=== PATIENT | female | born 1940 | race Caucasian/White ===

== ENCOUNTER 2021-05-06 02:45 | Day surgery (SDC) | payer MEDICARE, SELFPAY ==
[2021-04-24 15:08] VITALS: BMI 28.3
--- NOTE | 2021-05-06 09:43 | WPDANESEPPF ---
Anes - Initial Pre Proc Eval Procedure: Operation Date: 05/06/21 12:00 Proposed Procedures p Colonoscopy - Shin Felix MD Date/Time: 05/06/21 09:43 Surgeon: Shin Felix MD Pre Op Diagnosis: occult GI bleed, positive stool Patient Data Age: 81 Gender: F Height: 1.68 m Weight: 79.5 kg Allergies Allergy/AdvReac Type Severity Reaction Status Date / Time No Known Allergies Allergy Verified 05/06/21 10:47 Home Medications Medication Instructions Recorded Confirmed Type atorvastatin 40 mg tablet 40 mg PO DAILY #90 tablet 03/14/21 04/24/21 Rx hydrochlorothiazide 25 mg tablet 25 mg PO DAILY #90 tablet 03/14/21 04/24/21 Rx Patient hx anesthesia problems: none Family hx anesthesia problems: none PMFSH Past Medical History Medical History (Updated 05/06/21 @ 09:44 by Sukumar Blunt MD) Essential (primary) hypertension Hypothyroidism, unspecified Mixed hyperlipidemia Polyarticular arthritis Family History Family History Mother Family history of osteoporosis, Onset Age: 80 Patient's mother is , Onset Age: 80 Father Family history of malignant neoplasm, Onset Age: 80 Patient's father is , Onset Age: 80 Other Carcinoma of colon Family history of malignant neoplasm of breast Social History Social History Smoking status: Never smoker Second hand tobacco smoke exposure: No Alcohol intake: current Drinks per week: 1 Substance use: never Living arrangements: with family Gender identity (if verbalized by the patient): Female Spiritual care concerns: No Anes - Eval Final PreProcedure Day of Procedure 05/06/21 09:43 Patient weight: overweight Heart: regular rate and rhythm Lungs: clear to auscultation and normal air movement Airway: Mallampati scale class II Neurological: alert and oriented Last oral intake: >/= 8 hours ASA classification: II Emergent: no Anesthetic plan: proceed Anesthesia type and monitoring: general GIVS Informed Consent: The patient's anesthetic plan and its attendant risks and benefits were discussed with the patient/family/POA. Questions were solicited and answers provided to the satisfaction of the patient/family/POA.
[2021-05-06 10:48] VITALS: BP 136/89; PULSE 125; RESP 18; TEMP 36.1; O2SAT 96
[2021-05-06] MEDS: LACTATED RINGERS 1,000 ML 150 ML IV CONT (11:01)
--- NOTE | 2021-05-06 11:26 | PM.HPGS ---
History of Present Illness History of Present Illness Consent: Risks, benefits, and alternatives have been discussed and questions answered. Patient agrees to proceed with procedure. Chief complaint: occult GI bleed, positive stool Narrative: Brigid Zhang is a 81 year old female With occult blood in her stools Review of Systems Review of Systems: All systems reviewed & are unremarkable except as noted in HPI and below PMFSH Past Medical History Medical History Essential (primary) hypertension Hypothyroidism, unspecified Mixed hyperlipidemia Polyarticular arthritis Family History Family History Mother Family history of osteoporosis, Onset Age: 80 Patient's mother is , Onset Age: 80 Father Family history of malignant neoplasm, Onset Age: 80 Patient's father is , Onset Age: 80 Other Carcinoma of colon Family history of malignant neoplasm of breast Social History Social History Smoking status: Never smoker Second hand tobacco smoke exposure: No Alcohol intake: current Drinks per week: 1 Substance use: never Living arrangements: with family Gender identity (if verbalized by the patient): Female Spiritual care concerns: No Meds Home Medications and Allergies Home Medications Medication Instructions Recorded Confirmed Type atorvastatin 40 mg tablet 40 mg PO DAILY #90 tablet 03/14/21 04/24/21 Rx hydrochlorothiazide 25 mg tablet 25 mg PO DAILY #90 tablet 03/14/21 04/24/21 Rx Allergies Allergy/AdvReac Type Severity Reaction Status Date / Time No Known Allergies Allergy Verified 05/06/21 10:47 Vital Signs Vital Signs - 24 hr 05/06/21 10:48 Temperature 36.1 C L Pulse Rate 125 H Respiratory Rate 18 Blood Pressure 136/89 Pulse Oximetry 96 Exam Resp: Auscultation: clear to auscultation bilaterally Cardio: Rate: regular rate Rhythm: regular rhythm GI: GI Palp: Yes Soft to palpation and No Tenderness to palpation present (GI) Assessment and Plan Assessment and plan (1) Blood in stool: Code(s): K92.1 - Melena Status: Acute Assessment and Plan: Colonoscopy with possible biopsy or polypectomy or cautery or injection of substances.
[2021-05-06 12:09] VITALS: BP 144/72; PULSE 97; RESP 24; O2SAT 97
[2021-05-06 12:19] VITALS: BP 135/72; PULSE 93; RESP 21; O2SAT 98
[2021-05-06 12:29] VITALS: BP 154/78; PULSE 94; RESP 24; O2SAT 98
== END 2021-05-06 12:43 | disposition home or self-care (01) ==
PROVIDERS: PCP Internal Medicine; Visit Provider Internal Medicine Gastroenterology
PROC: 0DJD8ZZ Inspection of Lower Intestinal Tract, Via Natural or Artificial Opening Endoscopic (ICD-10-PCS; CPT 45378; principal; 2021-05-06 12:00)
DX: K92.1 Melena (principal); K57.30 Diverticulosis of large intestine without perforation or abscess without bleeding; K62.1 Rectal polyp; I10 Essential (primary) hypertension; E03.9 Hypothyroidism, unspecified; E78.2 Mixed hyperlipidemia; M19.90 Unspecified osteoarthritis, unspecified site
CPT/HCPCS: 45380; 88305; J2405; J2704; J7120

== ENCOUNTER 2022-05-01 10:40 | Outpatient (CLI) | payer MEDICARE, SELFPAY ==
[2022-05-01 20:59] LABS: Alanine Aminotransferase 25 U/L (6-35); Albumin Level 4.4 g/dL (3.5-5.1); Alkaline Phosphatase 99 U/L (38-126); Anion Gap 9 mmol/L (8-16); Aspartate Amino Transferase 38 U/L (14-36); Bilirubin,Total 0.6 mg/dL (0.2-1.3); Blood Urea Nitrogen 18 mg/dL (7-17); Calcium 9.4 mg/dL (8.4-10.2); Carbon Dioxide 30 mmol/L (22-30); Chloride 99 mmol/L (98-107); Cholesterol 141 mg/dL (0-200); Estimated Glomerular Filt Rate > 60; Glucose 110 mg/dL (65-110); HDL Direct 39 mg/dL; Potassium 3.6 mmol/L (3.4-5.0); Sodium 138 mmol/L (137-145); Triglycerides 148 mg/dL (<150)
[2022-05-01 21:16] LABS: LDL Cholesterol Direct 54 mg/dL
== END 2022-05-01 10:41 | disposition home or self-care (01) ==
LOC: ANHGOSHLAB 10:42
PROVIDERS: PCP Family Medicine; Visit Provider Family Medicine
DX: E78.2 Mixed hyperlipidemia (principal); I10 Essential (primary) hypertension
CPT/HCPCS: 36415; 80053; 80061

== ENCOUNTER 2023-05-04 09:35 | Outpatient (CLI) | payer MEDICARE, SELFPAY ==
[2023-05-04 11:50] LABS: Anion Gap 1 mmol/L (8-16); Blood Urea Nitrogen 20 mg/dL (7-17); Carbon Dioxide 31 mmol/L (22-30); Chloride 104 mmol/L (98-107); Potassium 3.6 mmol/L (3.4-5.0); Sodium 136 mmol/L (137-145)
[2023-05-04 11:51] LABS: Alanine Aminotransferase 24 U/L (6-35); Albumin Level 4.1 g/dL (3.5-5.1); Alkaline Phosphatase 84 U/L (38-126); Aspartate Amino Transferase 45 U/L (14-36); Bilirubin,Total 0.6 mg/dL (0.2-1.3); Calcium 9.1 mg/dL (8.4-10.2); Cholesterol 147 mg/dL (0-200); Estimated Glomerular Filt Rate 60; Glucose 102 mg/dL (65-110); HDL Direct 40 mg/dL; Triglycerides 165 mg/dL (<150)
[2023-05-04 12:02] LABS: LDL Cholesterol Direct 65 mg/dL
== END 2023-05-04 09:36 | disposition home or self-care (01) ==
PROVIDERS: PCP Family Medicine; Visit Provider Family Medicine
DX: E78.2 Mixed hyperlipidemia (principal); Z13.228 Encounter for screening for other metabolic disorders; I10 Essential (primary) hypertension; Z13.29 Encounter for screening for other suspected endocrine disorder
CPT/HCPCS: 36415; 80053; 80061

== ENCOUNTER 2024-04-12 09:35 | Emergency (ER) | payer MEDICARE, SELFPAY ==
[2024-04-12 09:49] VITALS: BP 126/78; PULSE 91; RESP 16; TEMP 36.4; O2SAT 98
[2024-04-12 09:50] VITALS: BP 126/78; PULSE 91; RESP 16; TEMP 36.4; O2SAT 98
--- NOTE | 2024-04-12 09:50 | ED.GENADULT ---
HPI - General Adult General Chief complaint: Back Pain/Injury Stated complaint: Back Pain Time Seen by Provider: 04/12/24 09:50 Source: patient, RN notes reviewed and old records reviewed Mode of arrival: ambulatory Limitations: no limitations History of Present Illness HPI narrative: 84-year-old female to [facility] for complaint of left lower back pain that is becoming increasingly worse. Patient reports history of severe lumbar arthritis. Patient states that she has been having muscle spasms and left lumbar region several days. Patient attends treating at home with ibuprofen and heating pad. Patient states that her pain is most improved when lying down. Patient rating current pain at 7/10 while sitting and 9/10 with activity. Patient denies numbness, weakness, tingling, radiation of pain, urinary changes, bowel changes, saddle anesthesia, allergies. Patient ambulated to exam room with slow and steady gait with assistance of cane. Respirations even and nonlabored. Patient in no acute distress. Related Data Home Medications Medication Instructions Recorded Confirmed aspirin 325 mg tablet 325 mg PO BID 05/01/22 04/12/24 coenzyme Q10 200 mg capsule (Co 200 mg PO DAILY 05/01/22 04/12/24 Q-10) glucosamine-chondroitin 250 mg-200 2 tablet PO TID 05/01/22 04/12/24 mg tablet (Osteo Bi-Flex) multivitamin 1 tablet PO DAILY 05/01/22 04/12/24 omega-3 700 hn-ucw-yuc-ala-fish 1 cap PO DAILY 05/01/22 04/12/24 oil-flaxseed 320 mg-vit E capsule,DR Allergies Allergy/AdvReac Type Severity Reaction Status Date / Time No Known Allergies Allergy Verified 04/12/24 09:49 Review of Systems Review of Systems: All systems reviewed & are unremarkable except as noted in HPI and below Constitutional: Constitutional: Reports no additional constitutional complaints Eyes: Eyes: Reports no additional eye complaints ENT: Reports system reviewed and no additional complaints, except as documented Cardiovascular: Cardiovascular: Reports no additional cardiovascular complaints, Denies chest pain and Denies dyspnea Respiratory: Respiratory: Reports no additional respiratory complaints, Denies cough and Denies dyspnea Gastrointestinal: Gastrointestinal: Reports as per HPI, Denies constipation, Denies diarrhea, Denies nausea and Denies vomiting Genitourinary: Genitourinary: Reports as per HPI, Denies hematuria, Denies urinary frequency, Denies nocturia, Denies dysuria, Denies flank pain, Denies urinary incontinence, Denies urinary hesitancy and Denies urinary urgency Musculoskeletal: Musculoskeletal: Reports as per HPI, Reports back pain ( left lumbar), Reports muscle cramps ( left lumbar describes as spasms), Denies muscle weakness, Denies numbness, Denies radiating pain into limb and Denies tingling Neurologic: Reports system reviewed and no additional complaints, except as documented Psychiatric: Psychiatric: Reports no additional psychiatric complaints PMFSH Past Medical History Medical History Essential (primary) hypertension Hypothyroidism, unspecified Mixed hyperlipidemia Polyarticular arthritis Family History Family History Mother Family history of osteoporosis, Onset Age: 80 Patient's mother is , Onset Age: 80 Father Family history of malignant neoplasm, Onset Age: 80 Patient's father is , Onset Age: 80 Other Carcinoma of colon Family history of malignant neoplasm of breast Social History Social History Social History: Caffeine-coffee daily Smoking status: Never smoker Second hand tobacco smoke exposure: No Alcohol intake: current Drinks per week: 1 Alcohol use details: Occasionally Substance use: never Lack of Transportation: No Lack of Food: Never True Current Housing
== END 2024-04-12 10:25 | disposition home or self-care (01) ==
PROVIDERS: Emergency Provider Nurse Practitioner Family; PCP Family Medicine
DX: S39.012A Strain of muscle, fascia and tendon of lower back, initial encounter (principal); X58.XXXA Exposure to other specified factors, initial encounter; I10 Essential (primary) hypertension; E03.9 Hypothyroidism, unspecified; E78.2 Mixed hyperlipidemia
CPT/HCPCS: 99213; G0463

== ENCOUNTER 2024-04-14 14:14 | Outpatient (CLI) | payer MEDICARE, SELFPAY ==
--- NOTE | ~2024-04-14 | XR_ITS ---
3 VIEWS THORACIC SPINE Ordering provider: Paul Brizuela DO History: . No injury mid-low back pain . Comparison: None. FINDINGS: VERTEBRAL BODIES: Loss of volume of T11 which is most likely chronic. Otherwise, Normal height and al ignment. No definite visible acute fracture or subluxation. Dextroscoliosis. Degenerative changes of the spine. DISK SPACES: Narrowing of the disc spaces in the lower thoracic area. SOFT TISSUES: Normal. IMPRESSION: No definite acute osseous abnormality of the thoracic spine. Loss of volume of T11 is noted which may be chronic. If clinically suspicious CT is advised. Reviewed, dictated and finalized at location A.
--- NOTE | ~2024-04-14 | XR_ITS ---
3 VIEWS LUMBAR SPINE Ordering provider: Paul Brizuela DO History: . No injury mid-low back pain . Comparison: None. FINDINGS: VERTEBRAL BODIES:Levoscoliosis. No visible fracture or subluxation. Degenerative spine. Loss of volu me of T11 most likely chronic is noted. DISK SPACES: Narrowing of all the disc spaces. Multilevel facet joint disease. SOFT TISSUES: Normal. IMPRESSION: No acute osseous abnormality lumbar spine. Levoscoliosis. Multilevel degenerative disc disease. Reviewed, dictated and finalized at location A.
== END 2024-04-14 14:15 ==
PROVIDERS: PCP Family Medicine; Visit Provider Family Medicine
DX: M51.36 Other intervertebral disc degeneration, lumbar region (principal)
CPT/HCPCS: 72072; 72100

== ENCOUNTER 2024-04-25 11:49 | Outpatient (CLI) | payer MEDICARE, SELFPAY ==
[2024-04-25 15:43] LABS: Thyroid Stimulating Hormone Reflex 0.482 uIU/mL (0.465-4.68)
[2024-04-25 17:54] LABS: Alanine Aminotransferase 22 U/L (6-35); Albumin Level 4.3 g/dL (3.5-5.1); Alkaline Phosphatase 113 U/L (38-126); Anion Gap 11 mmol/L (4-12); Aspartate Amino Transferase 52 U/L (14-36); Bilirubin,Total 0.6 mg/dL (0.2-1.3); Blood Urea Nitrogen 16 mg/dL (7-17); Calcium 9.3 mg/dL (8.4-10.2); Carbon Dioxide 29 mmol/L (22-30); Chloride 95 mmol/L (98-107); Cholesterol 123 mg/dL (0-200); Estimated Glomerular Filt Rate > 60; Glucose 94 mg/dL (65-110); HDL Direct 37 mg/dL; Potassium 4.2 mmol/L (3.4-5.0); Sodium 135 mmol/L (137-145); Triglycerides 118 mg/dL (<150)
[2024-04-25 18:05] LABS: LDL Cholesterol Direct 47 mg/dL
== END 2024-04-25 11:50 | disposition home or self-care (01) ==
PROVIDERS: PCP Family Medicine; Visit Provider Family Medicine
DX: E78.2 Mixed hyperlipidemia (principal); I10 Essential (primary) hypertension; Z13.228 Encounter for screening for other metabolic disorders; Z13.29 Encounter for screening for other suspected endocrine disorder
CPT/HCPCS: 36415; 80053; 80061; 84443

== ENCOUNTER 2024-05-07 18:30 | Observation (INO) | payer MEDICARE, SELFPAY ==
[2024-05-07] VITALS (22 sets, daily range): BP systolic 127–149; BP diastolic 65–104; PULSE 87–105; RESP 12–22; TEMP 36.6; O2SAT 92–100
--- NOTE | ~2024-05-07 | CT_ITS ---
EXAMINATION: CT thoracic spine wo con DATE: 05/07/2024 21:13 INDICATION: fracture . TECHNIQUE: Computed tomography (CT) of the thoracic spine was performed without intravenous contrast. Automated exposure control and iterative reconstruction technique were employed. The dose-length pro duct was 483.38 mGy-cm. COMPARISON: X-ray chest and ribs, same date; x-ray thoracic spine 04/14/2024 FINDINGS: Moderate height loss at T11 with an acute-appearing burst fracture and 3 mm posterior retro pulsion. Minimal paraspinal hematoma. Multilevel degenerative disc disease and facet arthropathy. No severe central canal narrowing. No severe neural foraminal narrowing. Simple left renal cyst. Coronar y artery and atherosclerotic indications. Cholecystectomy. IMPRESSION: Acute, moderate burst fracture at T11 with 3 mm retropulsion. Reviewed, dictated and finalized at location K.
--- NOTE | ~2024-05-07 | XR_ITS ---
EXAMINATION: XR ribs LT 2V w CXR 2V Exam Date/Time: 05/07/2024 19:12 CDT HISTORY: pain Comparison: X-ray thoracic and lumbar spine 04/14/2024. RESULT: Lines, tubes, and devices: None. Lungs and pleura: Clear. Cardiothymic silhouette: Stable. Other: Severe compression deformity at T11. No acute upper abdominal finding. IMPRESSION: Interval worsening of the compression deformity at T11, now severe. No acute cardiopulmonary process. Reviewed, dictated and finalized at location K.
--- NOTE | 2024-05-07 18:54 | ECG_ITS ---
Test Date: 2024-05-07 18:49:05 Measurements Intervals [place] Rate: 102 P: 37 MO: 188 QRS: 51 QRSD: 100 T: 12 QT: 349 QTc: 457 Interpretive Statements SINUS TACHYCARDIA NONSPECIFIC ST & T-WAVE ABNORMALITY INCOMPLETE RIGHT BUNDLE BRANCH BLOCK No previous ECG available for comparison Electronically Signed On 05-08-2024 10:37:29 CDT by Paul Fuentes M.D.
[2024-05-07 19:13] LABS: Basophils Absolute Auto 0.1 K/mm3 (0.0-0.1); Eosinophils Absolute Auto 0.1 K/mm3 (0-0.3); Eosinophils Percent Auto 1.5 % (0-4.4); Hematocrit 36.8 % (37.0-47.0); Hemoglobin 12.5 g/dL (12.0-15.0); Immature Granulocyte Absolute 0.03 K/mm3 (0.00-0.031); Immature Granulocyte Percent A 0.3 % (0-0.5); Lymphocytes Absolute Auto 2.59 K/mm3 (0.9-3.2); Lymphocytes Percent Auto 27.6 % (18.3-44.2); Mean Corpuscular Hemoglobin 28.5 pg (26-34); Mean Corpuscular Volume 83.8 fl (80-100); Mean Platelet Volume 9.2 fl (7.4-10.4); Monocytes Absolute Auto 0.6 K/mm3 (0.1-0.6); Monocytes Percent Auto 6.8 % (2.6-8.5); Neutrophils Absolute Auto 5.9 K/mm3 (1.3-6.7); Neutrophils Percent Auto 62.8 % (45.5-73.1); Platelet Count Result 327 k/mm3 (150-375); Red Blood Count 4.39 M/mm3 (4.2-5.4); White Blood Count 9.4 K/mm3 (4.5-10.0)
[2024-05-07 19:25] LABS: Alanine Aminotransferase 20 U/L (6-35); Albumin Level 4.2 g/dL (3.5-5.1); Alkaline Phosphatase 127 U/L (38-126); Anion Gap 14 mmol/L (4-12); Aspartate Amino Transferase 33 U/L (14-36); Bilirubin,Total 0.6 mg/dL (0.2-1.3); Blood Urea Nitrogen 16 mg/dL (7-17); Calcium 9.2 mg/dL (8.4-10.2); Carbon Dioxide 25 mmol/L (22-30); Chloride 92 mmol/L (98-107); Estimated CRCL calculation 52 ml/min; Estimated Glomerular Filt Rate > 60; Glucose 133 mg/dL (65-110); Potassium 2.8 mmol/L (3.4-5.0); Sodium 131 mmol/L (137-145)
[2024-05-07 19:33] LABS: Troponin I < 0.012 ng/mL (0.000-0.034)
[2024-05-07 19:35] LABS: INR 0.9; Prothrombin Time 12.4 Seconds (11.1-14.7)
[2024-05-07 19:36] LABS: Partial Thromboplastin Time 23.7 Seconds (22.3-36.8)
[2024-05-07] MEDS: KETOROLAC 15 MG/ML VIAL (*BKC) IV PUSH (19:42)
[2024-05-07] MEDS: POTASSIUM CHLORIDE 20 MEQ ER TABLET 40 MEQ PO (19:43)
[2024-05-07] MEDS: HYDROcodone/acetaminophen (*CRX) 5-325 MG TABLET 1 TAB PO (19:43)
--- NOTE | 2024-05-07 19:45 | PC.NURSE ---
Extra pillow given to pt upon request.
--- NOTE | 2024-05-07 20:38 | ED.GENADULT ---
HPI - General Adult General Chief complaint: Shortness of Breath/Dyspnea Stated complaint: sob/back pain, decreased lung sounds L Time Seen by Provider: 05/07/24 18:53 History of Present Illness HPI narrative: Patient is an 84-year-old female who presents ER with back pain. Sudden onset while coughing. Patient has had some back pain over last month is being seen by her PCP. She had outpatient x-ray that showed indeterminate fracture at T10. She has been going to physical therapy. She has had muscle relaxers without improvement. No chest pain or chest pressure. No lower extremity numbness or weakness. She is having trouble with mobility now that she has pain in her back due to her discomfort. Related Data Home Medications Medication Instructions Recorded Confirmed aspirin 325 mg tablet 325 mg PO BID 05/01/22 04/25/24 coenzyme Q10 200 mg capsule (Co 200 mg PO DAILY 05/01/22 04/25/24 Q-10) glucosamine-chondroitin 250 mg-200 2 tablet PO TID 05/01/22 04/25/24 mg tablet (Osteo Bi-Flex) multivitamin 1 tablet PO DAILY 05/01/22 04/25/24 omega-3 700 ra-ozx-zam-ala-fish 1 cap PO DAILY 05/01/22 04/25/24 oil-flaxseed 320 mg-vit E capsule, Allergies Allergy/AdvReac Type Severity Reaction Status Date / Time No Known Allergies Allergy Verified 04/25/24 12:38 Review of Systems Review of Systems: All systems reviewed & are unremarkable except as noted in HPI and below Constitutional: Constitutional: Reports no additional constitutional complaints ENT: Reports system reviewed and no additional complaints, except as documented Cardiovascular: Cardiovascular: Reports no additional cardiovascular complaints Respiratory: Respiratory: Reports no additional respiratory complaints Musculoskeletal: Musculoskeletal: Reports back pain, Denies arthralgias and Denies joint swelling [facility] Past Medical History Medical History Essential (primary) hypertension Hypothyroidism, unspecified Mixed hyperlipidemia Polyarticular arthritis Family History Family History Mother Family history of osteoporosis, Onset Age: 80 Patient's mother is , Onset Age: 80 Father Family history of malignant neoplasm, Onset Age: 80 Patient's father is , Onset Age: 80 Other Carcinoma of colon Family history of malignant neoplasm of breast Social History Social History Social History: Caffeine-coffee daily Smoking status: Never smoker Second hand tobacco smoke exposure: No Alcohol intake: current Drinks per week: 1 Alcohol use details: Occasionally Substance use: never Lack of Transportation: No Lack of Food: Never True Current Housing: I Have Housing Concerned About Future Housing: No Difficulty Paying Gas/Electric Bills: No Difficulty Paying for Meds: No Currently Unemployed: No Difficulty w/ Childcare or Family Care: No Living arrangements: with family Gender identity (if verbalized by the patient): Female Spiritual care concerns: No Exam Narrative: GENERAL: Well-appearing, well-nourished, and in no acute distress. HEAD: Normocephalic, atraumatic. ENT: Mucous membranes moist. CHEST: Clear to auscultation. No respiratory distress. HEART: Regular rate and rhythm. Normal peripheral pulses. ABDOMEN: Soft, nontender, nondistended. Back: Midline tenderness new T10 as well as left-sided paraspinal muscle tenderness. EXTREMITIES: Normal range of motion. No edema. SKIN: Warm, dry, no rash. NEURO: Alert and oriented x3. PSYCH: Normal mood and affect. Course Course Emergency Course: Admit to hospitalist. Neurosurgery consulted. Will attempt to fit for TLSO brace. Neurosurgery would like a CT scan of the T-spine. Patient received oral potassium replacement. Vital Signs Vital signs
--- NOTE | 2024-05-07 21:51 | PM.IMHP ---
H&P: HPI History of Present Illness Date/Time: 05/07/24 21:51 Chief Complaint: back pain Narrative: this is an 84-year-old female with past medical history significant for hypertension, hypothyroidism, mixed hyperlipidemia, DJD. Patient presents to the emergency room due to intractable back pain after having compression fracture at the level of T11. Patient denies any nausea vomiting, fevers, rigors, chills, cough, shortness of breath, tingling numbness in sensation, weakness. Patient has been placed in observation for pain control further evaluation management and treatment. EXAMINATION: XR ribs LT 2V w CXR 2V Exam Date/Time: 05/07/2024 19:12 CDT HISTORY: pain Comparison: X-ray thoracic and lumbar spine 04/14/2024. RESULT: Lines, tubes, and devices: None. Lungs and pleura: Clear. Cardiothymic silhouette: Stable. Other: Severe compression deformity at T11. No acute upper abdominal finding. IMPRESSION: Interval worsening of the compression deformity at T11, now severe. No acute cardiopulmonary process. EXAMINATION: CT thoracic spine wo con DATE: 05/07/2024 21:13 INDICATION: fracture . TECHNIQUE: Computed tomography (CT) of the thoracic spine was performed without intravenous contrast. Automated exposure control and iterative reconstruction technique were employed. The dose-length product was 483.38 mGy-cm. COMPARISON: X-ray chest and ribs, same date; x-ray thoracic spine 04/14/2024 FINDINGS: Moderate height loss at T11 with an acute-appearing burst fracture and 3 mm posterior retropulsion. Minimal paraspinal hematoma. Multilevel degenerative disc disease and facet arthropathy. No severe central canal narrowing. No severe neural foraminal narrowing. Simple left renal cyst. Coronary artery and atherosclerotic indications. Cholecystectomy. IMPRESSION: Acute, moderate burst fracture at T11 with 3 mm retropulsion. Review of Systems Review of Systems: back pain PMFSH Past Medical History Medical History Essential (primary) hypertension Hypothyroidism, unspecified Mixed hyperlipidemia Polyarticular arthritis Family History Family History Mother Family history of osteoporosis, Onset Age: 80 Patient's mother is , Onset Age: 80 Father Family history of malignant neoplasm, Onset Age: 80 Patient's father is , Onset Age: 80 Other Carcinoma of colon Family history of malignant neoplasm of breast Social History Social History Social History: Caffeine-coffee daily Smoking status: Never smoker Second hand tobacco smoke exposure: No Alcohol intake: current Drinks per week: 1 Alcohol use details: Occasionally Substance use: never Lack of Transportation: No Lack of Food: Never True Current Housing: I Have Housing Concerned About Future Housing: No Difficulty Paying Gas/Electric Bills: No Difficulty Paying for Meds: No Currently Unemployed: No Difficulty w/ Childcare or Family Care: No Living arrangements: with family Gender identity (if verbalized by the patient): Female Spiritual care concerns: No Meds Home Medications and Allergies Home Medications Medication Instructions Recorded Confirmed Type aspirin 325 mg tablet 325 mg PO BID 05/01/22 04/25/24 History coenzyme Q10 200 mg capsule (Co 200 mg PO DAILY 05/01/22 04/25/24 History Q-10) glucosamine-chondroitin 250 mg-200 2 tablet PO TID 05/01/22 04/25/24 History mg tablet (Osteo Bi-Flex) multivitamin 1 tablet PO DAILY 05/01/22 04/25/24 History omega-3 700 vl-ega-wcf-ala-fish 1 cap PO DAILY 05/01/22 04/25/24 History oil-flaxseed 320 mg-vit E capsuleDR atorvastatin 40 mg tablet 40 mg PO DAILY #90 tabs 03/18/24 04/25/24 Rx hydrochlorothiazide 25 mg tablet 25 mg PO DAILY #90
[2024-05-08] VITALS (36 sets, daily range): BP systolic 114–147; BP diastolic 68–102; PULSE 72–94; RESP 9–22; TEMP 36.7; O2SAT 88–100; BMI 29.0
[2024-05-08] MEDS: HYDROcodone/acetaminophen (*CRX) 5-325 MG TABLET 1 TAB PO ×4 (03:26→20:39)
--- NOTE | 2024-05-08 10:04 | ADMGEN ---
This patient, Brigid Zhang, was admitted to Medical Room 343-01. Patient/family oriented to hospital policies and general routines including ID bracelet, bed and alarms, visiting hours, pain management, procedures, bathroom and other care routines, personal items, smoking policy, room service/diet, and visiting hours. Information on how to activate the Rapid Response Team has been discussed. Patient/Family are encouraged to report perceived risks to care and to ask questions if they do not understand what they are told or what they should do.
[2024-05-08] MEDS: POTASSIUM CHLORIDE 20 MEQ ER TABLET PO (10:05)
--- NOTE | 2024-05-08 11:01 | WPDNEUROSGCN ---
Assessment and Plan Assessment and plan (1) Burst fracture of thoracic vertebra: Code(s): S22.001A - Stable burst fracture of unspecified thoracic vertebra, initial encounter for closed fracture Status: Acute Plan Ms. Zhang is an 84-year-old female with history of HTN, hypothyroidism, HLD, and known T11 compression fracture who presented to the ER with acute worsening of back pain which she has had for the last month and for which she has been seeing her PCP. Xray on April 14 showed the fracture, and she is supposed to have an MRI next month. She had acute worsening of the pain after a coughing episode. Imaging in the ER revealed a burst fracture at T11. I personally reviewed the CT scan which shows a T11 burst fracture with about 50% loss of height and minimal retropulsion. The fracture does not involve the pedicles or posterior elements. I have contacted [facility] about fitting her for a TLSO brace today. She should wear this when out of bed. She may work with therapy once her brace is fitted. She should avoid NSAIDs as these can interfere with bone healing. I will arrange for outpatient follow up in clinic in the next 4 weeks or so. Consult date: 05/08/24 HPI: Brigid Zhang is a 84 year old female [facility] Past Medical History Medical History Essential (primary) hypertension Hypothyroidism, unspecified Mixed hyperlipidemia Polyarticular arthritis Family History Family History Mother Family history of osteoporosis, Onset Age: 80 Patient's mother is , Onset Age: 80 Father Family history of malignant neoplasm, Onset Age: 80 Patient's father is , Onset Age: 80 Other Carcinoma of colon Family history of malignant neoplasm of breast Social History Social History Social History: Caffeine-coffee daily Smoking status: Never smoker Second hand tobacco smoke exposure: No Alcohol intake: current Drinks per week: 1 Alcohol use details: Occasionally Substance use: never Do You Feel Safe in your Home?: Yes Lack of Transportation: No Lack of Food: Never True Current Housing: I Have Housing Concerned About Future Housing: No Difficulty Paying Gas/Electric Bills: No Difficulty Paying for Meds: No Currently Unemployed: No Education: Decline to Answer Difficulty w/ Childcare or Family Care: No Living arrangements: with family Gender identity (if verbalized by the patient): Female Spiritual care concerns: No Meds Home Medications and Allergies Home Medications Medication Instructions Recorded Confirmed Type aspirin 325 mg tablet 325 mg PO BID 05/01/22 05/08/24 History coenzyme Q10 200 mg capsule (Co 200 mg PO DAILY 05/01/22 05/08/24 History Q-10) glucosamine-chondroitin 250 mg-200 2 tablet PO BID 05/01/22 05/08/24 History mg tablet (Osteo Bi-Flex) multivitamin 1 tablet PO DAILY 05/01/22 05/08/24 History omega-3 700 fb-iwa-nyk-ala-fish 1 cap PO DAILY 05/01/22 05/08/24 History oil-flaxseed 320 mg-vit E capsule,DR atorvastatin 40 mg tablet 40 mg PO DAILY #90 tabs 03/18/24 05/08/24 Rx hydrochlorothiazide 25 mg tablet 25 mg PO DAILY #90 tabs 03/18/24 05/08/24 Rx Allergies Allergy/AdvReac Type Severity Reaction Status Date / Time No Known Allergies Allergy Verified 04/25/24 12:38 Vital Signs Vital Signs - 24 hr 05/07/24 18:36 05/07/24 18:59 05/07/24 18:45 Temperature 97.9 F Pulse Rate 105 H 102 H Respiratory Rate 22 H 18 Blood Pressure 142/65 H Pulse Oximetry 100 99 Oxygen Delivery Room Air Room Air 05/07/24 23:08 05/07/24 19:23 05/07/24 19:30 Temperature Pulse Rate 95 97 94 Respiratory Rate 15 20 18 Blood Pressure 127/76 Pulse Oximetry 96 100 99 Oxygen Delivery 05/07/24 19:47 05/07/24 20:25
[2024-05-08 11:33] LABS: Hematocrit 40.2 % (37.0-47.0); Mean Corpuscular HGB Conc 32.3 g/dl (32-36); Mean Corpuscular Volume 86.5 fl (80-100); Mean Platelet Volume 8.9 fl (7.4-10.4); Platelet Count Result 345 k/mm3 (150-375); Red Blood Count 4.65 M/mm3 (4.2-5.4); Red Cell Distribution Width 15.5 % (11.5-14.5); White Blood Count 10.4 K/mm3 (4.5-10.0)
[2024-05-08 11:49] LABS: Anion Gap 11 mmol/L (4-12); Blood Urea Nitrogen 14 mg/dL (7-17); Calcium 9.2 mg/dL (8.4-10.2); Carbon Dioxide 27 mmol/L (22-30); Chloride 94 mmol/L (98-107); Estimated CRCL calculation 59 ml/min; Estimated Glomerular Filt Rate > 60; Glucose 189 mg/dL (65-110); Magnesium 1.9 mg/dL (1.6-2.3); Potassium 3.4 mmol/L (3.4-5.0); Sodium 132 mmol/L (137-145)
--- NOTE | 2024-05-08 12:33 | PCPTNOTE ---
Reviewed [facility] Consult note. Will initiate therapy evaluation once brace is fitted.
--- NOTE | 2024-05-08 15:09 | WPDPN ---
Progress Note: A&P Assessment and Plan (1) Burst fracture of thoracic vertebra: Code(s): S22.001A - Stable burst fracture of unspecified thoracic vertebra, initial encounter for closed fracture Status: Acute (2) Intractable back pain: Code(s): M54.9 - Dorsalgia, unspecified Status: Acute (3) Compression fracture of vertebral column: Code(s): M48.50XA - Collapsed vertebra, not elsewhere classified, site unspecified, initial encounter for fracture Status: Acute (4) Hypokalemia: Code(s): E87.6 - Hypokalemia Status: Acute Plan this is an 84-year-old female with past medical history significant for hypertension, hypothyroidism, mixed hyperlipidemia, DJD. Patient presents to the emergency room due to intractable back pain after having compression fracture at the level of T11. Patient denies any nausea vomiting, fevers, rigors, chills, cough, shortness of breath, tingling numbness in sensation, weakness. Patient has been placed in observation for pain control further evaluation management and treatment. patient was consulted by neurosurgery and ordered TLSO (Thoracolumbar sacral orthosis) and patient received it, currently wearing the TLSO sitting in the chair, stats pain is bearable, her and family are present. patient will work with PT. patient is instructed not to wear the TLSO while sleeping in the bed. will continue pain management.. Subjective Date/time seen: 05/08/24 15:09 Interval history: back pain [id number]: this is an 84-year-old female with past medical history significant for hypertension, hypothyroidism, mixed hyperlipidemia, DJD. Patient presents to the emergency room due to intractable back pain after having compression fracture at the level of T11. Patient denies any nausea vomiting, fevers, rigors, chills, cough, shortness of breath, tingling numbness in sensation, weakness. Patient has been placed in observation for pain control further evaluation management and treatment. patient was consulted by neurosurgery and ordered TLSO (Thoracolumbar sacral orthosis) and patient received it, currently wearing the TLSO sitting in the chair, stats pain is bearable, her and family are present. patient will work with PT. patient is instructed not to wear the TLSO while sleeping in the bed. will continue pain management.. Exam Narrative: Patient is comfortabale siting in the chair has TLSO on. HEENT: clear not icteric eyes CHEST: TLSO ABD: distended MS: no edema SKIN: no obvious rash NEURO: grossly intact Objective Data Vital Signs Vital Signs: Vital Signs - 24 hr 05/07/24 18:36 05/07/24 18:59 05/07/24 18:45 Temperature 36.6 C Pulse Rate 105 H 102 H Respiratory Rate 22 H 18 Blood Pressure 142/65 H Pulse Oximetry 100 99 Oxygen Delivery Room Air Room Air 05/07/24 23:08 05/07/24 19:23 05/07/24 19:30 Temperature Pulse Rate 95 97 94 Respiratory Rate 15 20 18 Blood Pressure 127/76 Pulse Oximetry 96 100 99 Oxygen Delivery 05/07/24 19:47 05/07/24 20:25 05/07/24 20:30 Temperature Pulse Rate 92 87 91 Respiratory Rate 16 13 20 Blood Pressure Pulse Oximetry 98 100 100 Oxygen Delivery 05/07/24 20:45 05/07/24 21:21 05/07/24 21:40 Temperature Pulse Rate 89 99 93 Respiratory Rate 15 18 17 Blood Pressure Pulse Oximetry 100 97 97 Oxygen Delivery 05/07/24 21:47 05/07/24 22:00 05/07/24 22:01 Temperature Pulse Rate 95 97 96 Respiratory Rate 19 18 19 Blood Pressure 149/104 H Pulse Oximetry 95 Oxygen Delivery 05/07/24 22:18 05/07/24 22:42 05/07/24 22:45 Temperature Pulse Rate 98 97 97 Respiratory Rate 17 12 15 Blood Pressure Pulse Oximetry 96 93 92 Oxygen Delivery 05/07/24 23:00 05/08/24 00:22 05/08/24 02:28 Temperature Pulse Rate 97 86 90 Respiratory Rate 15 15 13 Blood Pressure 129/77 147/86 H Pulse Oximetry 94 96 99 Oxygen [employer]
[2024-05-08] MEDS: ASPIRIN 325 MG TABLET PO (17:57)
[2024-05-09] MEDS: HYDROcodone/acetaminophen (*CRX) 5-325 MG TABLET 1 TAB PO ×3 (02:20→13:28)
[2024-05-09 04:43] VITALS: BP 150/75; PULSE 80; RESP 16; TEMP 36.5; O2SAT 100
[2024-05-09 07:01] LABS: Hematocrit 40.8 % (37.0-47.0); Hemoglobin 13.1 g/dL (12.0-15.0); Mean Corpuscular HGB Conc 32.1 g/dl (32-36); Mean Corpuscular Hemoglobin 28.4 pg (26-34); Mean Corpuscular Volume 88.5 fl (80-100); Mean Platelet Volume 9.1 fl (7.4-10.4); Platelet Count Result 325 k/mm3 (150-375); Red Blood Count 4.61 M/mm3 (4.2-5.4); Red Cell Distribution Width 15.5 % (11.5-14.5); White Blood Count 8.5 K/mm3 (4.5-10.0)
[2024-05-09 07:31] LABS: Anion Gap 7 mmol/L (4-12); Blood Urea Nitrogen 12 mg/dL (7-17); Calcium 9.1 mg/dL (8.4-10.2); Carbon Dioxide 31 mmol/L (22-30); Chloride 97 mmol/L (98-107); Estimated CRCL calculation 52 ml/min; Estimated Glomerular Filt Rate > 60; Glucose 97 mg/dL (65-110); Magnesium 2.3 mg/dL (1.6-2.3); Potassium 4.2 mmol/L (3.4-5.0); Sodium 135 mmol/L (137-145)
[2024-05-09] MEDS: OMEGA 3 POLYUNSAT FATTY ACIDS 1 GM CAP PO (08:45)
[2024-05-09] MEDS: ATORVASTATIN 40 MG TABLET PO (08:45)
[2024-05-09] MEDS: ASPIRIN 325 MG TABLET PO (08:45)
[2024-05-09] MEDS: hydroCHLOROthiazide 25 MG TABLET PO (08:45)
[2024-05-09] MEDS: POTASSIUM CHLORIDE 20 MEQ ER TABLET PO (08:45)
[2024-05-09] MEDS: MULTIVITAMINS THERAPEUTIC TAB (*BKC) 1 TABLET PO (08:45)
--- NOTE | 2024-05-09 10:38 | PM.DS ---
DS: Admitting Diagnosis Discharge Date 05/09/2024 Admitting Diagnosis Back pain DS: Discharge Diagnosis Discharge Diagnosis (1) Burst fracture of thoracic vertebra: Code(s): S22.001A - Stable burst fracture of unspecified thoracic vertebra, initial encounter for closed fracture Status: Acute (2) Intractable back pain: Code(s): M54.9 - Dorsalgia, unspecified Status: Acute (3) Compression fracture of vertebral column: Code(s): M48.50XA - Collapsed vertebra, not elsewhere classified, site unspecified, initial encounter for fracture Status: Acute (4) Hypokalemia: Code(s): E87.6 - Hypokalemia Status: Acute DS: Summary Hospital Course Hospital Course: this is an 84-year-old female with past medical history significant for hypertension, hypothyroidism, mixed hyperlipidemia, DJD. Patient presents to the emergency room due to intractable back pain after having compression fracture at the level of T11. Patient denies any nausea vomiting, fevers, rigors, chills, cough, shortness of breath, tingling numbness in sensation, weakness. Patient has been placed in observation for pain control further evaluation management and treatment. patient was consulted by neurosurgery and ordered TLSO (Thoracolumbar sacral orthosis) and patient received it, today patient is sitting in the chair, did work with PT, patient is clinically stable her pain is controlled, both patient and her are comfortable going home. will discharge today. Time Spent with Patient Time attestation: Total time spent providing and/or coordinating discharge services: Exam Narrative: Patient is comfortabale siting in the chair has TLSO on. HEENT: clear not icteric eyes CHEST: TLSO ABD: distended MS: no edema SKIN: no obvious rash NEURO: grossly intact DS: Data Data Completed and Pending Labs on day of discharge: Labs from last 24 hours 05/09/24 05/08/24 06:37 11:26 WBC 8.5 10.4 H RBC 4.61 4.65 Hgb 13.1 13.0 Hct 40.8 40.2 MCV 88.5 86.5 MCH 28.4 28.0 MCHC 32.1 32.3 RDW 15.5 H 15.5 H Plt Count 325 345 MPV 9.1 8.9 Sodium 135 L 132 L Potassium 4.2 3.4 Chloride 97 L 94 L Carbon Dioxide 31 H 27 Anion Gap 7 11 BUN 12 14 Creatinine 0.70 0.60 L Estim Creat Clear Calc 52 59 Estimated GFR > 60 > 60 Glucose 97 189 H Calcium 9.1 9.2 Magnesium 2.3 1.9 Discharge Plan Discharge Attending physician on discharge: Shira Puente V. Consulting providers: Cheyanne Le; Paul Fuentes; Finn Roberto Discharging Clinician: Anna Elise Patient Disposition: Home, Self-Care Activity: as tolerated Diet: heart healthy Discharge Instructions: patient to follow up with her neurosurgeon as scheduled, and follow up with her primary care provider as soon as possible. Patient Instructions: Antibiotic Form Stand Alone Forms: General Discharge Information Follow-up/Referrals: Paul Brizuela DO [Primary Care Provider] - Cheyanne Le MD [Physician] - Discharge Medications: New hydrocodone-acetaminophen 5-325 mg Tablet 1 tablet PO Q4H PRN (Reason: Pain Rated 4-6) Qty: 20 0RF Continued multivitamin Tablet 1 tablet PO DAILY coenzyme Q10 [Co Q-10] 200 mg capsule 200 mg PO DAILY aspirin 325 mg tablet 325 mg PO BID [id number] 700-320 mg capsule,delayed release(DR/EC) 1 cap PO DAILY glucosamine-chondroitin [Osteo Bi-Flex] 250-200 mg tablet 2 tablet PO BID Rx Instructions: give after food/meal hydrochlorothiazide 25 mg tablet 25 mg PO DAILY Qty: 90 1RF atorvastatin 40 mg tablet 40 mg PO DAILY Qty: 90 1RF Date of admission: 05/07/24 21:16 Primary Care Provider: Paul Brizuela Admitting Provider: Shira Puente V. Attending physician on admission: Anna Elise Condition: Stable
[2024-05-09 11:06] VITALS: O2SAT 96
== END 2024-05-09 13:40 | disposition home or self-care (01) ==
LOC: ANHED 21:24 → ANH3MED 05-08 08:59 → ANH3MEDSUR 05-10 07:50
PROVIDERS: Admitting Provider Internal Medicine; Emergency Provider Emergency Medicine; PCP Family Medicine; Visit Provider Family Medicine
DX: S22.081A Stable burst fracture of T11-T12 vertebra, initial encounter for closed fracture (principal); Z79.82 Long term (current) use of aspirin; I10 Essential (primary) hypertension; E03.9 Hypothyroidism, unspecified; E78.2 Mixed hyperlipidemia; E87.6 Hypokalemia; M15.9 Polyosteoarthritis, unspecified
CPT/HCPCS: 36415; 71046; 71100; 72128; 80048; 80053; 83735; 84484; 85025; 85027; 85610; 85730; 93005; 96374; 97161; 97165; 97530; 97535; 99285; A9270; G0378; J1885

== ENCOUNTER 2024-05-30 14:02 | Outpatient (CLI) | payer MEDICARE, SELFPAY ==
--- NOTE | ~2024-05-30 | XR_ITS ---
EXAM: XR thoracolumbar DATE: 05/30/2024 14:33 HISTORY: S22.001A - Stable burst fracture of unspecified thoracic ... . COMPARISON: 04/14/2024; CT T-spine 05/07/2024. FINDINGS: Osseous detail obscured by overlying brace. Cholecystectomy clips. Calcified left lower lo be granuloma. Lung bases otherwise clear. Lumbar scoliosis. Multilevel degenerative disc disease and facet arthropathy. No significant listhesis. Increased height loss, anterior wedge deformity and foca l kyphosis at T11. IMPRESSION: Progressive burst fracture at T11, now with severe height loss. Reviewed, dictated and finalized at location K.
== END 2024-05-30 14:03 | disposition home or self-care (01) ==
PROVIDERS: PCP Family Medicine; Visit Provider Neurological Surgery
DX: S22.081A Stable burst fracture of T11-T12 vertebra, initial encounter for closed fracture (principal); X58.XXXA Exposure to other specified factors, initial encounter
CPT/HCPCS: 72080

== ENCOUNTER 2024-08-01 13:10 | Outpatient (CLI) | payer MEDICARE, SELFPAY ==
--- NOTE | ~2024-08-01 | MR_ITS ---
EXAMINATION: MR lumbar spine wo con DATE: 08/01/2024 14:12 INDICATION: Scoliosis of lumbar spine. TECHNIQUE: Magnetic resonance imaging (MRI) of the lumbar spine was performed without intravenous con trast. Sequences included sagittal T2-weighted FSE, sagittal T2-weighted FS FSE, sagittal T1-weighted FSE, and axial T2-weighted FSE. COMPARISON: Lumbar spine radiographs 05/30/2024 FINDINGS: There is 20 degrees levoscoliosis of lumbar spine. Vertebral body heights are normal in lum bar spine. There is severely decreased disc height at L1-L2, moderately decreased disc height at L2-L 3, mildly decreased disc height at L3-L4, and moderately decreased disc height at L4-L5 and L5-S1. Th e distal spinal cord signal intensity is normal. The conus medullaris is at L1. The following disc le vels are specifically discussed: L1-L2: The disc is bulging and has an annular fissure. There is mild bilateral facet joint osteoarthr itis. There is moderate right and mild left neural foraminal stenosis. There is mild central canal st enosis. L2-L3: The disc is bulging. There is mild right and moderate left facet joint osteoarthritis. There i s mild bilateral neural foraminal stenosis. There is mild central canal stenosis. L3-L4: The disc is bulging and has an annular fissure. There is severe right and moderate left facet joint osteoarthritis. There is mild bilateral neural foraminal stenosis. There is mild central canal stenosis. L4-L5: The disc is bulging and has an annular fissure. There is severe bilateral facet joint osteoart hritis. There is mild right and moderate left neural foraminal stenosis. There is mild central canal stenosis. L5-S1: The disc is bulging and has an annular fissure. There is moderate right and severe left facet joint osteoarthritis. There is mild left neural foraminal stenosis. There is mild central canal steno sis. IMPRESSION: 1. Severe lumbar spondylosis. 2. Lumbar levoscoliosis. Reviewed, dictated and finalized at location A. NT RESOLUTION SPECIALIST
--- NOTE | ~2024-08-01 | MR_ITS ---
EXAMINATION: MR thoracic spine wo con DATE: 08/01/2024 13:52 INDICATION: Back pain. Wrist fracture of thoracic spine, traumatic. TECHNIQUE: Magnetic resonance imaging (MRI) of the thoracic spine was performed without intravenous c ontrast. COMPARISON: Thoracic spine radiographs 05/30/2024, CT 05/07/2024 FINDINGS: There is 13 degrees dextroscoliosis of thoracic spine. There is a burst fracture of T11 wit h 3/5 loss of height, edema-like marrow signal intensity, and retropulsion of bone 4 mm into central spinal canal. There is mildly decreased disc height at T12-L1. There is multilevel facet joint osteoa rthritis, severe at many levels. At T2-T3, there is a central extrusion with mild central canal steno sis. At T8-T9, there is a left central extrusion with mild central canal stenosis. At T12-L1, the dis c is bulging with mild central canal stenosis. There is mild neural foraminal stenosis at many levels on either side. On the right, there is moderate neural foraminal stenosis at T6-T7. On the left, the re is moderate neural foraminal stenosis at T10-T11. The spinal cord signal intensity is normal. The conus medullaris is at L1. There is a 2.2 cm cyst in left kidney. IMPRESSION: 1. Subacute T11 burst fracture with worsened height loss from 05/07/2024. 2. Thoracic dextroscoliosis. 3. Moderate thoracic spondylosis. Reviewed, dictated and finalized at location A. TOR OPERATOR
== END 2024-08-01 13:11 | disposition home or self-care (01) ==
LOC: GOSHIMG 13:11
PROVIDERS: PCP Neurological Surgery; Visit Provider Neurological Surgery
DX: S22.001A Stable burst fracture of unspecified thoracic vertebra, initial encounter for closed fracture (principal); X58.XXXA Exposure to other specified factors, initial encounter; M47.814 Spondylosis without myelopathy or radiculopathy, thoracic region; M47.816 Spondylosis without myelopathy or radiculopathy, lumbar region; M41.34 Thoracogenic scoliosis, thoracic region; M41.86 Other forms of scoliosis, lumbar region
CPT/HCPCS: 72146; 72148

== ENCOUNTER 2024-09-28 12:52 | Outpatient (CLI) | payer MEDICARE, SELFPAY ==
--- NOTE | ~2024-09-28 | DEXA_ITS ---
Bone Density Report Name: JOE PANIAGUA Age: 84 Sex: Female Ethnicity: White Date of : 1940 Indication: postmenopausal; screening for osteoporosis; secondary osteoporosis; Referring Provider: ELVIRA KHALIL Study: Bone densitometry was performed. Exam Date: September 28, 2024 Accession number: [id number] Bone Density: Region BMD T-score Z-score Classification AP Spine(L1-L4) 1.039 -0.1 2.8 Normal Femoral Neck (Left) 0.589 -2.3 0.2 Osteopenia Total Hip (Left) 0.849 -0.8 1.5 Normal Femoral Neck (Right) 0.591 -2.3 0.2 Osteopenia Total Hip (Right) 0.868 -0.6 1.7 Normal Femoral Neck Mean 0.590 -2.3 0.2 Osteopenia Total Hip Mean 0.858 -0.7 1.6 Normal World Health Organization criteria for BMD impression classify patients as: Normal (T-score at or above -1.0), Osteopenia (T-score between -1.0 and -2.5), or Osteoporosis (T-score at or below -2.5). 10-year Fracture Risk(1): Major Osteoporotic Fracture 17% Hip Fracture 5.6% Reported Risk Factors: [place] (), Neck BMD=0.589, BMI=27.5, secondary osteoporosis (1) FRAX(R) Version 3.08. Fracture probability calculated for an untreated patient. Fracture probability may be lower if the patient has received treatment. Clinical Information Provided by Patient: Has secondary osteoporosis Has used the following medications: Vitamin D, multivitamin Patient maximum height was 64 Menopause Age: 60 No regular weight bearing exercise Drinks caffeinated beverages Onset of menses at age 16 Number of children 2 Impression: The patient has low bone mass, based on the Left Femoral Neck T-score. Discussion: BONE DENSITY IS LOW AT ONE OR MORE SKELETAL SITES. This patient's lowest T-score is low at one or more skeletal sites. It meets the World Health Organization's (WHO) criteria for ?low bone mass? (T-score between -1.0 and -2.5). The patient's 10-year risk of fracture as calculated by FRAX is less than the threshold where pharmacological therapy is recommended by the National Osteoporosis Foundation (NOF). However, all treatment decisions require clinical judgment and consideration of individual patient factors, including patient preferences, comorbidities, previous drug use, risk factors not captured in the FRAX model (e.g., frailty, falls, vitamin D deficiency, increased bone turnover, interval significant decline in bone density) and possible under or overestimation of fracture risk by FRAX. The patient should follow a healthful lifestyle (good nutrition with adequate calcium and vitamin D, and appropriate weight-bearing exercise). Follow-Up: Consider repeating this study in 2 to 3 years to reassess this patient's status, or sooner if there is some new clinical indication. Reported by: SHIMA on 09/28/2024 1:39:00 PM. Reviewed, dictated and finalized at location A.
== END 2024-09-28 12:53 | disposition home or self-care (01) ==
PROVIDERS: PCP Family Medicine; Visit Provider Family Medicine
DX: Z78.0 Asymptomatic menopausal state (principal); S22.001A Stable burst fracture of unspecified thoracic vertebra, initial encounter for closed fracture; M48.50XA Collapsed vertebra, not elsewhere classified, site unspecified, initial encounter for fracture; M85.89 Other specified disorders of bone density and structure, multiple sites
CPT/HCPCS: 77080

== ENCOUNTER 2024-10-05 14:21 | Outpatient (CLI) | payer MEDICARE, SELFPAY ==
--- NOTE | ~2024-10-05 | XR_ITS ---
HISTORY: M41.9 - Scoliosis, unspecified COMPARISON: Reference is made to an MRI examination dated 08/01/2024 TECHNIQUE: 2 view lumbar spine. FINDINGS: Levoscoliotic curvature of the lumbar spine is redemonstrated. There are 5 non-rib bearing lumbar vertebral bodies. Redemonstration of compression of the superior endplate of L2 and the inferior endplate of L1 demonst rating progression from previous examination. Redemonstration of anterior wedge compression fracture of the T8 11 vertebral body, also demonstratin g progression. Diffuse bony demineralization is also noted IMPRESSION: Degenerative disease demonstrating progression from previous MRI examinations for which repeat MRI ma y be performed, if the patient is clinically able. Reviewed, dictated and finalized at location A. MCORN GRADER IMPRESSION: Degenerative disease demonstrating progression from previous MRI examinations f or which repeat MRI may be performed, if the patient is clinically able.
== END 2024-10-05 14:22 | disposition home or self-care (01) ==
LOC: GOSHIMG 14:23
PROVIDERS: PCP Family Medicine; Visit Provider Neurological Surgery
DX: M51.369 Other intervertebral disc degeneration, lumbar region without mention of lumbar back pain or lower extremity pain (principal); M41.9 Scoliosis, unspecified
CPT/HCPCS: 72100

== ENCOUNTER 2025-02-16 09:00 | Outpatient (CLI) | payer MEDICARE, SELFPAY ==
[2025-02-16 13:40] LABS: Alanine Aminotransferase 20 U/L (6-35); Albumin Level 4.2 g/dL (3.5-5.1); Alkaline Phosphatase 72 U/L (38-126); Anion Gap 7 mmol/L (4-12); Aspartate Amino Transferase 79 U/L (14-36); Bilirubin,Total 0.7 mg/dL (0.2-1.3); Blood Urea Nitrogen 15 mg/dL (7-17); Calcium 9.7 mg/dL (8.4-10.2); Carbon Dioxide 31 mmol/L (22-30); Chloride 100 mmol/L (98-107); Cholesterol 148 mg/dL (0-200); Estimated Glomerular Filt Rate > 60; Glucose 94 mg/dL (65-110); HDL Direct 48 mg/dL; Potassium 3.8 mmol/L (3.4-5.0); Sodium 138 mmol/L (137-145); Total Protein 7.3 g/dL (6.3-8.2); Triglycerides 125 mg/dL (<150)
[2025-02-16 13:45] LABS: LDL Cholesterol Direct 52 mg/dL
[2025-02-16 14:25] LABS: Hemoglobin A1C 5.5 % (<5.7)
[2025-02-16 14:30] LABS: Hepatitis C Virus Antibody Negative (Negative)
[2025-02-16 14:47] LABS: Creatinine Urine 145.8 mg/dL; MALB Creatinine Ratio 16.7 mg/g (0-30); Microalbumin Urine Random 24.4 mg/L (0-16.7)
== END 2025-02-16 09:01 | disposition home or self-care (01) ==
PROVIDERS: PCP Family Medicine; Visit Provider Family Medicine
DX: E78.2 Mixed hyperlipidemia (principal); I10 Essential (primary) hypertension; Z13.1 Encounter for screening for diabetes mellitus; Z11.59 Encounter for screening for other viral diseases
CPT/HCPCS: 36415; 80053; 80061; 82043; 83036; 86803

== ENCOUNTER → 2025-02-21 15:08 | Outpatient (CLI) | payer MEDICARE, SELFPAY ==
--- NOTE | ~2025-02-21 | XR_ITS ---
Right Knee Technique: AP, lateral, and oblique views were obtained. Clinical History: Pain Findings: No fracture or dislocation is seen. Osseous alignment is anatomic. There is moderate patell ofemoral compartment degenerative change. There is minimal degenerative spurring of the medial and la teral joint lines.. No joint effusion is seen. Impression: Degenerative change, as above, worst at the patellofemoral compartment. Reviewed, dictated and finalized at location . Impression: Degenerative change, as above, worst at the patellofemoral compartment.
--- NOTE | ~2025-02-21 | XR_ITS ---
Left Knee Technique: AP, lateral, and sunrise views were obtained. Clinical History: Pain Findings: No fracture or dislocation is seen. Probable bipartite patella. There is moderate degenerat sharon change of the patellofemoral compartment. There is mild degenerative change of the medial lateral compartments. Soft tissues are unremarkable. No joint effusion is seen. Impression: Tricompartmental degenerative change, worst in the patellofemoral compartment. Probable bipartite patella. Reviewed, dictated and finalized at location M. Impression: Tricompartmental degenerative change, worst in the patellofemoral compartment. Probable bipartite patella.
== END ==
PROVIDERS: PCP Family Medicine; Visit Provider Family Medicine
DX: M17.0 Bilateral primary osteoarthritis of knee (principal)
CPT/HCPCS: 73564